=== PATIENT | female | born 1945 | race Caucasian/White ===

== ENCOUNTER → 2017-11-03 | Outpatient (CLI) | payer MEDICARE, OTHER | LOC: COL.LAB 14:48 | DX: Z01.812 Encounter for preprocedural laboratory examination (principal) ==

== ENCOUNTER → 2017-11-11 | Outpatient (REF) ==
[2017-11-11 05:54] LABS: INR 1.2 (0.8-3.0)
[2017-11-11 05:57] LABS: PROTHROMBIN TIME 13.3 SECONDS (9.7-12.8)
== END ==
LOC: ZMSC 05:12
PROVIDERS: Orthopaedic Surgery
DX: Z01.89 Encounter for other specified special examinations (principal)

== ENCOUNTER → 2017-11-12 | Outpatient (REF) ==
[2017-11-12 04:02] LABS: INR 1.4 (0.8-3.0); PROTHROMBIN TIME 15.6 SECONDS (9.7-12.8)
== END ==
LOC: ZMSC 03:51
PROVIDERS: Orthopaedic Surgery
DX: Z01.89 Encounter for other specified special examinations (principal)